=== PATIENT | male | born 1975 | race Caucasian/White ===

== ENCOUNTER 2021-04-12 20:19 | Emergency (ER) | payer BC ==
[2021-04-12] MEDS ORDERED: LORazepam 1 MG Tab PO ONE (23:52)
--- NOTE | 2021-04-13 01:35 | EDM.PDOCBH ---
<KianaOlga Lidia - Last Filed: 04/13/21 06:55> ED HPI GENERAL MEDICAL PROBLEM - General Chief Complaint: Behavioral/Psych Stated Complaint: ANXIETY Time Seen by Provider: 04/12/21 23:22 Source of Information: Reports: Patient History Limitations: Reports: No Limitations - History of Present Illness INITIAL COMMENTS - FREE TEXT/NARRATIVE: Patient presents emergency room today secondary to concern about extreme anxiety he states that 9 days ago it has become increasingly more extreme in nature he states at that time trigger was a fight with his . He states that he did go to a local physician's office on Sunday here in [place] and was diagnosed with anxiety depression and panic disorder. He states at that time he was started on medication specifically Prozac. He states that symptoms have not changed in relation to medication start but have continued in nature to the point he does not know what to do. Patient also states that he is unable to sleep secondary to racing thoughts shake shaking palpitations he is somewhat tangential and circumferential in his discussion and does not answer all questions directly in fact states at times that he knows times he scaring me. Patient does state that he feels like this is related to some repressed thoughts due to an incident that occurred when he was a child he states at age 11 and his brother was 11 but he would not elaborate and further on this incident is to what he think is causing his anxiety states that he talked with his mother somewhat about it as well as his but again he still would not discuss any further with me. Patient denies any suicidal ideation no homicidal ideation but he could not contract for self safety disposition PMH--HTN, DVT, obesity Meds--xeralto, lisinopril, prozac; see EMR for other meds as patient could not remember NKDA Tob--former EtOH--he does admit to significant intake, states he started drinking at age 12. He states he drinks about 1/2 of a 1/5 hard liquir (vodka or rum are his choice) as well as 12-15 beers. He states he moves from beer to hard liquor so he can sleep. He reports last drink a day prior to ER presentation Drugs--marijuana (edible or smokes) - Related Data Allergies Allergy/AdvReac Type Severity Reaction Status Date / Time No Known Allergies Allergy Verified 07/27/21 20:45 Home Meds: Home Meds FLUoxetine HCl [Prozac] 20 mg PO DAILY 04/12/21 [History] Rivaroxaban [Xarelto] 20 mg PO DAILY 04/12/21 [History] atorvaSTATin [Lipitor] 20 mg PO BEDTIME 04/12/21 [History] lisinopriL [Lisinopril] 10 mg PO DAILY 04/12/21 [History] Past Medical History Cardiovascular History: Reports: Blood Clots/VTE/DVT, High Cholesterol, Hypertension Psychiatric History: Reports: Anxiety Hematologic History: Reports: Anticoagulation Therapy Dermatologic History: Reports: Other (See Below) Other Dermatologic History: dermatitis - Infectious Disease History Infectious Disease History: Reports: Chicken Pox Social & Family History - Tobacco Use Tobacco Use Status *Q: Former Tobacco User Years of Tobacco use: 3 Used Tobacco, but Quit: Yes Month/Year Tobacco Last Used: 2009 - Caffeine Use Caffeine Use: Reports: Soda - Alcohol Use Days Per Week of Alcohol Use: 5 Number of Drinks Per Day: 6 Total Drinks Per Week: 30 - Recreational Drug Use Recreational Drug Use: Yes Drug Use in Last 12 Months: Yes Recreational Drug Type: Reports: Marijuana/Hashish ED ROS GENERAL - Review of Systems Review Of Systems: Comprehensive ROS is negative, except as noted in HPI. Constitutional: Reports: No Symptoms HEENT: Reports: No Symptoms Respiratory: Reports: No Symptoms Cardiovascular: Reports: Palpitations GI/Abdominal: Reports: No Symptoms : Reports: No Symptoms Musculoskeletal: Reports: No Symptoms Skin: Reports: No Symptoms Neurological: Reports: Tremors Psychiatric: Reports: Agitation, Anxiety, Depression, Mood Lability, Other (sleep disturbance). Denies: Hallucinations, Homicidal Ideation, Suicidal Ideation ED EXAM, BEHAVIORAL HEALTH - Physical Exam Exam: See Below Exam Limited By: No Limitations General Appearance: Alert, Anxious, Obese Eye Exam: Bilateral Eye: EOMI, Normal Inspection, PERRL Ears: Normal External Exam, Hearing Grossly Normal Nose: Normal Inspection Throat/Mouth: Normal Inspection, Normal Voice, No Airway Compromise Head: Atraumatic, Normocephalic Neck: Normal Inspection, Supple, Non-Tender, Full Range of Motion Respiratory/Chest: No Respiratory Distress, Lungs Clear, Normal Breath Sounds Cardiovascular: Normal Peripheral Pulses, Regular Rate, Rhythm, No Edema, No Murmur GI/Abdominal: Normal Bowel Sounds, Soft, Non-Tender (Male) Exam: Deferred Rectal (Males) Exam: Deferred Back Exam: Normal Inspection, Full Range of Motion Extremities: Normal Inspection, Normal Range of Motion, No Pedal Edema, Normal Capillary Refill Neurological: Alert, CN II-XII Intact, Normal Cognition, No Motor/Sensory Deficits, Oriented x 3 Psychiatric: Alert, Flat Affect, Restless, Agitated, Pressured Speech (tangental in nature at times). No: Homicidal Thoughts, Suicidal Plan, Suicidal Thoughts Skin Exam: Warm, Dry, Intact, Normal color COURSE, BEHAVIORAL HEALTH COMP - Course Re-Assessment/Re-Exam: 0330--crisis is present in the emergency room has completed her evaluation. She did discuss with me that at this time she felt that he was having hallucinations described as visual auditory. There is concern about some repressed childhood trauma events including the one he alludes to that occurred with his brother but likely there are others. At this time she is going to recommend admission for inpatient psychiatric care, he does agree to this. at bedside she has been waiting in the waiting room also agrees to this care. Will provide patient with banana bag to include thiamine secondary to his reported significant alcohol intake/use on a daily basis Medical Clearance: 04/13/21 01:37 labs have been reviewed and he is medically cleared for Mobile Crisis interview Discharge vs Psych Eval/Treatment:: 04/13/21 05:[address] has returned no acute process, see final report for details. Chart has been sent for review to [facility] unit. awaiting response at this time 04/13/21 06:[address] Churchill, ER at change of shift/transfer of care. Awaiting placement at this time. Medically cleared. Has received banana bag due to reported excessive EtOH use Departure - Departure Disposition: Home, Self-Care 01 Clinical Impression: Anxiety, Hallucinations, Alcohol abuse, Depressive disorder - Discharge Information Instructions: Managing Anxiety, Adult Referrals: PCP,None [Primary Care Provider] - Forms: ED Department Discharge Additional Instructions: Follow up with your doctors back home at your earliest opportunity. Return here as needed. Sepsis Event Note (ED) - Evaluation Sepsis Screening Result: No Definite Risk <Donny Churchill - Last Filed: 04/13/21 14:27> COURSE, BEHAVIORAL HEALTH COMP - Course Vital Signs: Last Vital Signs Temp 36.8 C 04/13/21 05:19 Pulse 68 04/13/21 05:19 Resp 17 04/13/21 05:19 BP 141/90 H 04/13/21 05:19 Pulse Ox 100 04/13/21 05:19 Orders, Labs, Meds: Active Orders 24 hr Category Date Time Status MVI, Adult with Vitamin K [Infuvite Adult] 10 ml Med 04/13/21 04:00 Active Thiamine [Vitamin B-1] 100 mg Folic Acid 1 mg Magnesium Sulfate [Magnesium Sulfate 50%] 3 gm Sodium Chloride 0.9% [Normal Saline] 1,000 ml IV ASDIRECTED Sodium Chloride 0.9% [Saline Flush] Med 04/13/21 03:45 Active 10 ml FLUSH ASDIRECTED PRN Saline Lock Insert [OM.PC] Routine Oth 04/13/21 03:45 Ordered Medication Orders Multivitamins/Minerals 10 ml/Thiamine HCl 100 mg/ Folic Acid 1 mg/ Magnesium Sulfate 3 gm/ Sodium Chloride 1,017.2 mls @ 999 mls/hr IV ASDIRECTED ROYCE Last Admin: 04/13/21 04:19 Dose: 999 mls/hr Documented by: AZEB Sodium Chloride (Sodium Chloride 0.9% 10 Ml Syringe) 10 ml FLUSH ASDIRECTED PRN PRN Reason: Keep Vein Open Last Admin: 04/13/21 05:49 Dose: 10 ml Documented by: ANAY Laboratory Tests 04/12/21 04/12/21 04/12/21 Range/Units 00:07 00:07 00:07 WBC 6.6 (4.5-11.0) K/uL RBC 4.29 L (4.30-5.90) M/uL Hgb 14.0 (12.0-15.0) g/dL Hct 40.7 (40.0-54.0) % MCV 95 (80-98) fL MCH 33 H (27-31) pg MCHC 34 (32-36) % Plt Count 223 (150-400) K/uL Neut % (Auto) 57.4 (36-66) % Lymph % (Auto) 24.9 (24-44) % [place] % (Auto) 16.6 H (2-6) % Eos % (Auto) 0.5 L (2-4) % Baso % (Auto) 0.6 (0-1) % Sodium 138 L (140-148) mmol/L Potassium 3.8 (3.6-5.2) mmol/L Chloride 101 (100-108) mmol/L Carbon Dioxide 23 (21-32) mmol/L Anion Gap 17.8 H (5.0-14.0) mmol/L BUN 13 (7-18) mg/dL Creatinine 1.1 (0.8-1.3) mg/dL Est Cr Clr Drug Dosing 82.13 mL/min Estimated GFR (MDRD) > 60 (>60) Glucose 107 H (74-106) mg/dL Calcium 9.1 (8.5-10.1) mg/dL Magnesium 2.1 (1.8-2.4) mg/dL Total Bilirubin 0.6 (0.2-1.0) mg/dL AST 22 (15-37) U/L ALT 30 (12-78) U/L Alkaline Phosphatase 44 L (46-116) U/L Total Protein 7.1 (6.4-8.2) g/dL Albumin 3.7 (3.4-5.0) g/dL Globulin 3.4 (2.3-3.5) g/dL Albumin/Globulin Ratio 1.1 L (1.2-2.2) Free T4 1.16 (0.76-1.46) ng/dL Urine Color (YELLOW) Urine Appearance (CLEAR) Urine pH (5.0-8.0) Ur Specific [place] (1.008-1.030) Urine Protein (NEGATIVE) mg/dL Urine Glucose (UA) (NEGATIVE) mg/dL Urine Ketones (NEGATIVE) mg/dL Urine Occult Blood (NEGATIVE) Urine Nitrite (NEGATIVE) Urine Bilirubin (NEGATIVE) Urine Urobilinogen (0.2-1.0) EU/dL Ur Leukocyte Esterase (NEGATIVE) Urine RBC (0-5) Urine WBC (0-5) Ur Epithelial Cells Amorphous Sediment Urine Bacteria Urine Mucus Salicylates 1.2 L (2.0-20.0) mg/dL Urine Opiates Screen (NEGATIVE) Ur Oxycodone Screen (NEGATIVE) Urine Methadone Screen (NEGATIVE) Ur Propoxyphene Screen (NEGATIVE) Acetaminophen 0.0 L (10.0-30.0) ug/mL Ur Barbiturates Screen (NEGATIVE) Ur Tricyclics Screen (NEGATIVE) Ur Phencyclidine Scrn (NEGATIVE) Ur Amphetamine Screen (NEGATIVE) U Methamphetamines Scrn (NEGATIVE) Urine MDMA Screen (NEGATIVE) U Benzodiazepines Scrn (NEGATIVE) U Cocaine Metab Screen (NEGATIVE) U Marijuana (THC) Screen (NEGATIVE) Ethyl Alcohol mg/dL 04/12/21 04/12/21 04/12/21 Range/Units 00:07 23:52 23:52 WBC (4.5-11.0) K/uL RBC (4.30-5.90) M/uL Hgb (12.0-15.0) g/dL Hct (40.0-54.0) % MCV (80-98) fL MCH (27-31) pg MCHC (32-36) % Plt Count (150-400) K/uL Neut % (Auto) (36-66) % Lymph % (Auto) (24-44) % [place] % (Auto) (2-6) % Eos % (Auto) (2-4) % Baso % (Auto) (0-1) % Sodium (140-148) mmol/L Potassium (3.6-5.2) mmol/L Chloride (100-108) mmol/L Carbon Dioxide (21-32) mmol/L Anion Gap (5.0-14.0) mmol/L BUN (7-18) mg/dL Creatinine (0.8-1.3) mg/dL Est Cr Clr Drug Dosing mL/min Estimated GFR (MDRD) (>60) Glucose (74-106) mg/dL Calcium (8.5-10.1) mg/dL Magnesium (1.8-2.4) mg/dL Total Bilirubin (0.2-1.0) mg/dL AST (15-37) U/L ALT (12-78) U/L Alkaline Phosphatase (46-116) U/L Total Protein (6.4-8.2) g/dL Albumin (3.4-5.0) g/dL Globulin (2.3-3.5) g/dL Albumin/Globulin Ratio (1.2-2.2) Free T4 (0.76-1.46) ng/dL Urine Color Yellow (YELLOW) Urine Appearance Cloudy A (CLEAR) Urine pH 5.5 (5.0-8.0) Ur Specific [place] >= 1.030 (1.008-1.030) Urine Protein Negative (NEGATIVE) mg/dL Urine Glucose (UA) Negative (NEGATIVE) mg/dL Urine Ketones 15 H (NEGATIVE) mg/dL Urine Occult Blood Negative (NEGATIVE) Urine Nitrite Negative (NEGATIVE) Urine Bilirubin Small H (NEGATIVE) Urine Urobilinogen 2.0 H (0.2-1.0) EU/dL Ur Leukocyte Esterase Negative (NEGATIVE) Urine RBC 0-5 (0-5) Urine WBC 0-5 (0-5) Ur Epithelial Cells Rare Amorphous Sediment Not seen Urine Bacteria Rare Urine Mucus Many Salicylates (2.0-20.0) mg/dL Urine Opiates Screen Negative (NEGATIVE) Ur Oxycodone Screen Negative (NEGATIVE) Urine Methadone Screen Negative (NEGATIVE) Ur Propoxyphene Screen Negative (NEGATIVE) Acetaminophen (10.0-30.0) ug/mL Ur Barbiturates Screen Negative (NEGATIVE) Ur Tricyclics Screen Negative (NEGATIVE) Ur Phencyclidine Scrn Negative (NEGATIVE) Ur Amphetamine Screen Negative (NEGATIVE) U Methamphetamines Scrn Negative (NEGATIVE) Urine MDMA Screen Negative (NEGATIVE) U Benzodiazepines Scrn Negative (NEGATIVE) U Cocaine Metab Screen Negative (NEGATIVE) U Marijuana (THC) Screen Presumptive positive H (NEGATIVE) Ethyl Alcohol < 3 mg/dL Medications Generic Name Dose Route Start Last Admin Trade Name Freq PRN Reason Stop Dose Admin Multivitamins/Minerals 10 ml/ 1,017.2 mls @ 999 mls/hr 04/13/21 04:00 0 04/13/21 04:19 Thiamine HCl 100 mg/ Folic IV 999 mls/hr Acid 1 mg/ Magnesium Sulfate 3 ASDIRECTED ROYCE Administration gm/ Sodium Chloride Sodium Chloride 10 ml 04/13/21 03:45 04/13/21 05:49 Sodium Chloride 0.9% 10 Ml Syringe FLUSH 10 ml ASDIRECTED PRN Administration Keep Vein Open Discontinued Medications Generic Name Dose Route Start Last Admin Trade Name Freq PRN Reason Stop Dose Admin Folic Acid 1 mg 04/13/21 03:45 Folic Acid 50 Mg/10 Ml Mdv IV 04/13/21 03:46 ONETIME STA Thiamine HCl 100 mg/ Sodium 101 mls @ 202 mls/hr 04/13/21 03:41 Chloride IV 04/13/21 03:42 ONETIME ONE Sodium Chloride 1,000 mls @ 333 mls/hr 04/13/21 03:42 Normal Saline IV 04/13/21 06:42 .BOLUS ONE Multivitamins/Minerals 10 ml/ 1,010 mls @ 500 mls/hr 04/13/21 03:43 Sodium Chloride IV 04/13/21 05:44 ASDIRECTED ONE Magnesium Sulfate 2 gm/ Premix 50 mls @ 25 mls/hr 04/13/21 03:45 IV 04/13/21 05:44 ONETIME ONE Lorazepam 1 mg 04/12/21 23:52 04/12/21 23:59 Lorazepam 1 Mg Tab PO 04/12/21 23:53 1 mg ONETIME ONE Administration Re-Assessment/Re-Exam Date: 04/13/21 (Crisis returned an re-assessed him, felt he was improved and safe for discharge. ) Departure - Departure Time of Disposition: 14:26 - Discharge Information *PRESCRIPTION DRUG MONITORING PROGRAM REVIEWED*: Not Applicable *COPY OF PRESCRIPTION DRUG MONITORING REPORT IN PATIENT DEJAH: Not Applicable Sepsis Event Note (ED) - Focused Exam Vital Signs: Vital Signs Temp Pulse Resp BP Pulse Ox 04/13/21 05:19 36.8 C 68 17 141/90 H 100
[2021-04-13] MEDS ORDERED: Thiamine 100 MG in Sodium Chloride 0.9% 100 ML IV ONE (03:41)
[2021-04-13] MEDS ORDERED: Sodium Chloride 0.9% 1,000 ML IV ONE (03:42)
[2021-04-13] MEDS ORDERED: MVI, Adult with Vitamin K 10 ML in Sodium Chloride 0.9% 1,000 ML IV ONE ×2 (03:43)
[2021-04-13] MEDS ORDERED: Sodium Chloride 0.9% 10 ML Syringe FLUSH PRN (03:45)
[2021-04-13] MEDS ORDERED: Magnesium Sulfate/Water 2 GM in Premix Bag 1 BAG IV ONE (03:45)
[2021-04-13] MEDS ORDERED: Folic Acid 50 MG/10 ML MDV IV STA (03:45)
[2021-04-13] MEDS ORDERED: MVI, Adult with Vitamin K 10 ML, Thiamine 100 MG, Folic Acid 1 MG, Magnesium Sulfate 3 ... IV SCH ×5 (04:00)
--- NOTE | 2021-04-13 04:30 | CRLCT ---
For Patients: As a result of the Century Cures Act, medical imaging exams and procedure reports are released immediately into your electronic medical record. You may view this report before your referring provider. If you have questions, please contact your health care provider. INDICATION: Hallucinations TECHNIQUE: CT Head without i.v. contrast. Coronal and sagittal reformats were obtained. COMPARISON: None FINDINGS: CSF space: The ventricles are normal for age. Brain: No evidence of mass, acute infarction or hemorrhage is seen. No mass-effect or midline shift is seen. The brain parenchyma is otherwise normal in appearance with preservation of the sands-white matter junction. Calvarium: The visualized paranasal sinuses are well aerated. The mastoid air cells are clear. The visualized orbits are grossly unremarkable. The calvarium is unremarkable in appearance with no fractures identified. IMPRESSION: 1. No evidence of acute infarction, intracranial hemorrhage, or mass-effect seen. Please note that all CT scans at this facility use dose modulation, iterative reconstruction, and/or weight-based dosing when appropriate to reduce radiation dose to as low as reasonably achievable. Dictated by: Romero Champagne MD @ 04/13/2021 04:29:26 (Electronically Signed)
== END 2021-04-13 14:35 | disposition home or self-care (01) ==
LOC: JP.ED 20:19
DX: F41.9 Anxiety disorder, unspecified (principal); F32.9 Major depressive disorder, single episode, unspecified; F10.10 Alcohol abuse, uncomplicated; R44.3 Hallucinations, unspecified; I10 Essential (primary) hypertension; E78.00 Pure hypercholesterolemia, unspecified; E66.9 Obesity, unspecified; Z68.34 Body mass index [BMI] 34.0-34.9, adult; Z86.718 Personal history of other venous thrombosis and embolism; Z79.01 Long term (current) use of anticoagulants; Z87.891 Personal history of nicotine dependence; Z79.899 Other long term (current) drug therapy
CPT/HCPCS: 36415; 70450; 80053; 80143; 80179; 80305; 80307; 81001; 83735; 84439; 85025; 96365; 99284; A9270; J3411; J3475; J7030; J3490